=== PATIENT | male | born 1975 | race Asian ===

== ENCOUNTER 2019-03-08 17:30 | Emergency (ER) | payer OTHER ==
[2019-03-08 17:53] VITALS: BP 161/114; PULSE 84; TEMP 97.9; BMI 25.9
--- NOTE | 2019-03-08 18:39 | PDOC ---
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 Occurred: reports: just prior to arrival Severity: reports: moderate Pain Location: reports: upper extremity Method of Injury: Yes: direct blow Modifying Factors: improves with: None Associated Symptoms (Fall): denies symptoms Past History - Travel Traveled outside of the country in the last 30 days: No Close contact w/someone who was outside of country & ill: No - Past Medical History Allergies/Adverse Reactions: Allergies Allergy/AdvReac Type Severity Reaction Status Date / Time No Known Allergies Allergy Verified 03/08/19 17:49 Home Medications: Ambulatory Orders NK [No Known Home Medication] 03/08/19 CVA: No COPD: No CHF: No DVT: No - Immunization History Immunization Up to Date: Yes - Suicide/Smoking/Psychosocial Hx Smoking History: Never smoked Information on smoking cessation initiated: No Hx Alcohol Use: No Drug/Substance Use Hx: No Substance Use Type: None Review of Systems - Review of Systems Able to Perform ROS?: Yes Is the patient limited Palestinian proficient: Yes Constitutional: Yes: Symptoms Reported, See HPI, Malaise HEENTM: No: Symptoms Reported ABD/GI: No: Symptoms Reported Musculoskeletal: Yes: Symptoms Reported, See HPI Integumentary: Yes: Symptoms Reported, See HPI, Bruising, Other (right third digit tip) Neurological: No: Symptoms reported All Other Systems: Reviewed and Negative *Physical Exam - Vital Signs Last Vital Signs Temp Pulse Resp BP Pulse Ox 97.9 F 84 16 161/114 H 95 03/08/19 17:50 03/08/19 17:50 03/08/19 17:50 03/08/19 17:50 03/08/19 17:50 - Physical Exam General Appearance: Yes: Nourished, Appropriately Dressed, Apparent Distress, Mild Distress HEENT: positive: SUNG, Normal ENT Inspection, TMs Normal, Pharynx Normal Neck: positive: Supple. negative: Tender Gastrointestinal/Abdominal: positive: Soft. negative: Tender Extremity: positive: Normal Range of Motion, Swelling. 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 Evacuated 100% subungual hematoma without incident, dressed with bacitracin ointment and splint ED Treatment Course - RADIOLOGY Radiology Studies Ordered: Category Date Time Status FINGER(S) RIGHT [RAD] Stat Radiology 03/08/19 18:38 Ordered Progress Note - Progress Note Progress Note: Crush injury to right third digit, no fractures. Subungual hematoma evacuated and patient wrapped/splinted. *DC/Admit/Observation/Transfer Diagnosis at time of Disposition: Hematoma, subungual, finger, right Qualifiers: Encounter type: initial encounter Qualified Code(s): S60.10XA - Contusion of unspecified finger with damage to nail, initial encounter - Discharge Dispostion Disposition: HOME Condition at time of disposition: Stable Decision to Admit order: No - Referrals Referrals: Michael Kincaid MD [Primary Care Provider] - - Patient Instructions Printed Discharge Instructions: DI for Crush Injury Additional Instructions: Rest, keep hand elevated Avoid heavy lifting or strenuous activity until healed Soak finger every 2-3 hours while awake for the next 2-3 days to keep continue to allow drainage Reapply bacitracin ointment and bulky dressing after each soaking May use ibuprofen or Tylenol for pain relief Followup with private physician in one to 2 days for wound check as needed Return immediately to emergency department or private doctor's for worsening redness, swelling, pain, streaking tetanus/diphtheria/pertussis booster was updated today - Post Discharge Activity Forms/Work/School Notes: Back to Work
[2019-03-08] MEDS ORDERED: DIPHTH,PERTUSS(ACELL),TET 0.5 ML DISP.SYRIN IM ONE ×2 (19:03→19:07)
== END 2019-03-08 19:43 | disposition home or self-care (01) ==
LOC: JERFT 17:30
PROC: 3E0234Z Introduction of Serum, Toxoid and Vaccine into Muscle, Percutaneous Approach (ICD-10-PCS; principal; 2019-03-08)
PROC: 0H9QXZZ Drainage of Finger Nail, External Approach (ICD-10-PCS; 2019-03-08)
PROC: 2W3JX1Z Immobilization of Right Finger using Splint (ICD-10-PCS; 2019-03-08)
DX: S60.131A Contusion of right middle finger with damage to nail, initial encounter (principal); V68.4XXA Person boarding or alighting a heavy transport vehicle injured in noncollision transport accident, initial encounter; Y92.488 Other paved roadways as the place of occurrence of the external cause; Y93.89 Activity, other specified; Y99.0 Civilian activity done for income or pay
CPT/HCPCS: 73140-TC-RT-FY; 90715; 99281-25

== ENCOUNTER 2020-07-23 17:12 | Emergency (ER) | payer BC, OTHER ==
[2020-07-23 17:26] VITALS: BP 145/105; PULSE 85; TEMP 97; BMI 23.3
--- NOTE | 2020-07-23 18:13 | PDOC ---
History of Present Illness - General Chief Complaint: Bite Stated Complaint: INSCET BITE History Source: Patient Exam Limitations: No Limitations - History of Present Illness Initial Comments: 07/23/20 18:07 Patient is a 45-year-old male with history of childhood asthma here with complaints of redness and pain to the right forearm. Patient states that he had a bee sting 3 days ago, has been using bee sting cream and Claritin feels that the area of redness is getting bigger. Tetanus is up-to-date. Denies fever, chills, nausea, vomiting. PMD: Dr. Kincaid PMHX: as above PSOCHX: neg etoh, neg drug, neg cig ALL: NKDA GENERAL/CONSTITUTIONAL: [No fever or chills. No weakness. No weight change.] HEAD, EYES, EARS, NOSE AND THROAT: [No change in vision. No ear pain or discharge. No sore throat.] RESPIRATORY: [No cough, wheezing, or hemoptysis.] SKIN AND BREASTS: [No rash or easy bruising.] ENDOCRINE: [No increased thirst. No abnormal weight change.] HEMATOLOGIC/LYMPHATIC: [No anemia, easy bleeding, or history of blood clots.] ALLERGIC/IMMUNOLOGIC: [No hives or skin allergy. No latex allergy.] GENERAL: [The patient is awake, alert, and fully oriented, in no acute distress.] EXTREMITIES: [Normal range of motion, no edema. No clubbing or cyanosis. No cords, erythema, or tenderness.] NEUROLOGICAL: [Cranial nerves II through XII grossly intact. Normal speech, normal gait.] PSYCH: [Normal mood, normal affect.] SKIN: [large area of redness, tenderness to palpation, (+) rashes left forearm volar aspect. Past History - Medical History Allergies/Adverse Reactions: Allergies Allergy/AdvReac Type Severity Reaction Status Date / Time No Known Allergies Allergy Verified 07/23/20 17:25 Home Medications: Ambulatory Orders Cephalexin [Keflex] 500 mg PO BID #10 capsule 07/23/20 CVA: No COPD: No CHF: No DVT: No - Immunization History Immunization Up to Date: Yes - Psycho-Social/Smoking History Smoking History: Never smoked - Substance Abuse Hx (Audit-C & DAST Scrn) How often the patient has a drink containing alcohol: Never Score: In Men: 4 or > Positive; In Women: 3 or > Positive: 0 Screen Result (Pos requires Nsg. Audit-10AR): Negative *Physical Exam - Vital Signs Last Vital Signs Temp Pulse Resp BP Pulse Ox 97 F L 85 18 145/105 H 98 07/23/20 17:20 07/23/20 17:20 07/23/20 17:20 07/23/20 17:20 07/23/20 17:20 Medical Decision Making - Medical Decision Making 07/23/20 18:07 Patient is a 45-year-old male with history of childhood asthma here with complaints of redness and pain to the right forearm. Patient states that he had a bee sting 3 days ago, has been using bee sting cream and Claritin feels that the area of redness is getting bigger. Tetanus is up-to-date. Denies fever, chills, nausea, vomiting. Patient with bee sting concerning for cellulitis. Keflex 500 mg p.o. Wound check in 2 days I discussed the physical exam findings, ancillary test results and final diagnoses with the patient. I answered all of the patient's questions. The patient was satisfied with the care received and felt comfortable with the discharge plan and treatment plan. The Patient agrees to follow up with the primary care physician within 24-72 hours. Discharge - Discharge Information Problems reviewed: Yes Clinical Impression/Diagnosis: Cellulitis of arm, left Insect bite Qualifiers: Encounter type: initial encounter Site of insect bite: forearm Laterality: right Qualified Code(s): S50.861A - Insect bite (nonvenomous) of right forearm, initial encounter; W57.XXXA - Bitten or stung by nonvenomous insect and other nonvenomous arthropods, initial encounter Condition: Stable Disposition: HOME - Follow up/Referral - Patient Discharge Instructions Patient Printed Discharge Instructions: DI for Insect Bites and Stings, DI for Cellulitis -- Adult Additional Instructions: Your Discharge Instructions: You must call primary care physician within 24 hours to arrange follow-up. Return to the Emergency Department with any new, persistent or worsening symptoms, for fever, chills, SOB, dizziness or any other concerning changes that may occur. Follow-up with your primary care doctor in 2 days for wound check. - Post Discharge Activity
[2020-07-23] MEDS ORDERED: CEPHALEXIN MONOHYDRATE 500 MG CAPSULE (UD) PO ONE (18:16)
[2020-07-23] MEDS ORDERED: CEPHALEXIN MONOHYDRATE 500 MG CAPSULE (UD) ONE (18:31)
== END 2020-07-23 18:44 | disposition home or self-care (01) ==
LOC: JERFT 17:12 → JER 17:12 → JERFT 18:44
DX: S50.861A Insect bite (nonvenomous) of right forearm, initial encounter (principal); L03.114 Cellulitis of left upper limb
CPT/HCPCS: 99283-25

== ENCOUNTER 2021-08-30 12:29 | Emergency (ER) | payer OTHER, BC ==
[2021-08-30 12:37] VITALS: BP 142/94; PULSE 70; TEMP 98.7; BMI 29.5
[2021-08-30] MEDS ORDERED: LIDOCAINE 5% TOPICAL PATCH TP ONE (12:40)
[2021-08-30] MEDS ORDERED: METHOCARBAMOL 500 MG TABLET PO ONE (12:40)
[2021-08-30] MEDS ORDERED: KETOROLAC TROMETHAMINE 30 MG/1 ML VIAL IM ONE (12:40)
[2021-08-30] MEDS ORDERED: LIDOCAINE 5% TOPICAL PATCH ONE (12:42)
[2021-08-30] MEDS ORDERED: KETOROLAC TROMETHAMINE 30 MG/1 ML VIAL ONE (12:43)
[2021-08-30] MEDS ORDERED: METHOCARBAMOL 500 MG TABLET ONE (12:43)
== END 2021-08-30 15:03 | disposition home or self-care (01) ==
LOC: JER 12:29
PROC: 3E0233Z Introduction of Anti-inflammatory into Muscle, Percutaneous Approach (ICD-10-PCS; principal; 2021-08-30)
DX: M62.838 Other muscle spasm (principal)
CPT/HCPCS: 99283-25

== ENCOUNTER 2025-03-18 14:12 | Emergency (ER) | payer BC, OTHER ==
[2025-03-18 14:30] VITALS: BP 146/97; PULSE 79; RESP 16; TEMP 97.5; BMI 24.7
[2025-03-18] MEDS ORDERED: IBUPROFEN 600 MG TABLET (FP) PO ONE (15:02)
[2025-03-18] MEDS: IBUPROFEN 600 MG TABLET (FP) PO ONE (15:04)
== END 2025-03-18 15:32 | disposition home or self-care (01) ==
LOC: JERFT 14:12
DX: S39.011A Strain of muscle, fascia and tendon of abdomen, initial encounter (principal); M25.552 Pain in left hip; W01.0XXA Fall on same level from slipping, tripping and stumbling without subsequent striking against object, initial encounter
CPT/HCPCS: 99283-25